=== PATIENT | male | born 2000 ===

== ENCOUNTER 2024-09-28 21:22 | Emergency (ER) | payer BC, MEDICAID ==
[~2024-09-28] VITALS: Ht 165.1 cm; Wt 68.2 kg
[2024-09-28 21:40] VITALS: BP 139/83; PULSE 130; RESP 18; TEMP 99; O2SAT 99
[2024-09-28 21:57] LABS: COVID AG,FIA SOURCE NASAL SWAB
[2024-09-28 22:21] LABS: SARS-COV2 (COVID) ANTIGEN,FIA Negative (Negative)
[2024-09-28 22:22] LABS: INFLUENZA TYPE B NEGATIVE FOR TYPE B (NEGATIVE)
[2024-09-28 22:26] LABS: INFLUENZA TYPE A POSITIVE FOR TYPE A (NEGATIVE)
[2024-09-28] MEDS ORDERED: ACET-2080 PO (22:54)
[2024-09-28] MEDS ORDERED: ONDA-104 PO (22:54)
[2024-09-28] MEDS ORDERED: QUET200T5 PO (22:54)
[2024-09-28] MEDS ORDERED: IBUP-1554 PO (22:54)
[2024-09-28] MEDS ORDERED: GUAIFDM PO (22:54)
[2024-09-28] MEDS ORDERED: QUET200T PO (23:12)
[2024-09-28] MEDS: IBUPROFEN 600 MG TABLET PO ONE (23:18)
[2024-09-28] MEDS: GuaiFENesin/D-METHORPHAN [SUGAR-FREE] 200-20MG/10 ML SYRUP UDCUP PO ONE (23:18)
[2024-09-28] MEDS: ONDANSETRON 4 MG TABLET PO ONE (23:18)
[2024-09-28] MEDS: ACETAMINOPHEN 500 MG TABLET PO ONE (23:18)
== END 2024-09-28 23:22 | disposition home or self-care (01) ==
LOC: EMS 21:22
DX: J10.1 Influenza due to other identified influenza virus with other respiratory manifestations (principal); J20.9 Acute bronchitis, unspecified; R11.10 Vomiting, unspecified; R42 Dizziness and giddiness; F31.9 Bipolar disorder, unspecified; Z20.822 Contact with and (suspected) exposure to COVID-19
CPT/HCPCS: 99284; 87426; 87804; 93005; Q0162